=== PATIENT | female | born 1965 | race Caucasian/White ===

== ENCOUNTER → 2023-10-18 14:38 | Outpatient (REF) | payer OTHER, SELFPAY | LOC: HWRAD 14:38 | PROVIDERS: ATTENDING PHYSICIAN Physician Assistant Medical | DX: M79.89 Other specified soft tissue disorders (principal); M79.642 Pain in left hand; M79.641 Pain in right hand | CPT/HCPCS: 73130 ==

== ENCOUNTER → 2023-11-10 07:41 | Outpatient (REF) | payer OTHER, SELFPAY | LOC: EMG 07:41 | PROVIDERS: ATTENDING PHYSICIAN Orthopaedic Surgery Hand Surgery; FAMILY PHYSICIAN Physician Assistant Medical | DX: G56.03 Carpal tunnel syndrome, bilateral upper limbs (principal) | CPT/HCPCS: 95886; 95911 ==

== ENCOUNTER → 2024-06-12 11:37 | Outpatient (REF) | payer OTHER, SELFPAY | LOC: HWRAD 11:37 | PROVIDERS: ATTENDING PHYSICIAN Student in an Organized Health Care Education/Training Program | DX: M79.10 Myalgia, unspecified site (principal); M79.604 Pain in right leg; M79.605 Pain in left leg | CPT/HCPCS: 72110 ==

== ENCOUNTER → 2024-07-10 10:33 | Outpatient (REF) | payer OTHER, SELFPAY | LOC: HWRAD 10:33 | PROVIDERS: ATTENDING PHYSICIAN Physical Medicine & Rehabilitation; FAMILY PHYSICIAN Student in an Organized Health Care Education/Training Program | DX: M54.16 Radiculopathy, lumbar region (principal); M25.551 Pain in right hip; M25.552 Pain in left hip | CPT/HCPCS: 72131; 73522 ==